=== PATIENT | male | born 1940 | race Caucasian/White ===

== ENCOUNTER 2017-12-04 11:00 | Inpatient (IN) | payer OTHER, MEDICARE ==
[~2017-12-04] VITALS: Ht 185.4 cm; Wt 94.2 kg
[2018-01-09] MEDS ORDERED: BOSW5TAB PO (12:48)
[2018-01-09] MEDS ORDERED: TAMS5CAP PO (12:48)
[2018-01-09] MEDS ORDERED: ASPI81CH6 CHEW (12:48)
[2018-03-01] MEDS ORDERED: MULTTAB67 PO (11:56)
[2018-03-08] MEDS ORDERED: ceFAZolin 2 GM PREMIX 50 ML IV SCH (06:30)
[2018-03-08] MEDS ORDERED: VANCOMYCIN 1 GM/200 ML INJ 200 ML IV SCH (06:30)
[2018-03-08] MEDS ORDERED: DEXAMETHASONE SOD PHOS 20 MG/5 ML VIAL IV PUSH ONE (06:30)
[2018-03-08] MEDS ORDERED: LACTATED RINGER'S 1000 ML IV PRN (06:30)
[2018-03-08] MEDS ORDERED: CHLORHEXIDINE GLUCONATE 2 % 1 PACK (2 CLOTHS) TOPICAL PRN (06:30)
[2018-03-08] MEDS ORDERED: EXPAREL PERI-ARTICULAR INJECTION (TOTAL VOL. 60 ML) P-ARTICULR SCH ×2 (06:30)
[2018-03-08] MEDS ORDERED: SODIUM CHLORID 0.9% 500 ML IV PRN (06:30)
[2018-03-08] MEDS ORDERED: POVIDONE IODINE 7.5% SCRUB 118 ML BOTTLE TOPICAL SCH (06:30)
[2018-03-08] MEDS ORDERED: METOPROLOL TARTRATE 25 MG TAB PO PRN (06:30)
[2018-03-08] MEDS ORDERED: CHLORHEXIDINE GLUCONATE 4% SOLN 120 ML BTL TOPICAL SCH (06:30)
[2018-03-08] MEDS ORDERED: POVIDONE IODINE 5% (ANTISEPSIS KIT) 4 APPLICATIONS EACH NARE PRN (06:30)
[2018-03-08] MEDS ORDERED: HYDR-3288 PO (06:58)
[2018-03-08] MEDS ORDERED: ASPI81CH6 CHEW (06:58)
[2018-03-08] MEDS ORDERED: ACETAMINOPHEN/HYDROcodone 325 MG/7.5 MG TAB PO PRN (07:00)
[2018-03-08] MEDS ORDERED: ONDANSETRON HCL 4 MG/2 ML VIAL IVP PRN (07:00)
[2018-03-08] MEDS ORDERED: MORPHINE SULFATE 4 MG/ML INJ IV PUSH PRN (07:00)
[2018-03-08] MEDS ORDERED: diphenhydrAMINE HCL 50 MG/ML VIAL IV PUSH PRN (07:00)
[2018-03-08] MEDS ORDERED: Post-op Orders (for Pharmacy) XX ONE (07:00)
[2018-03-08] MEDS ORDERED: GENTAMICIN SULFATE 80 MG/2 ML VIAL ONE (07:06)
[2018-03-08] MEDS ORDERED: TRANEXAMIC ACID IV SCH (08:30)
[2018-03-08] MEDS ORDERED: TRANEXAMIC PERI-ARTICULAR 3,000 MG/NS 100 ML P-ARTICULR SCH ×2 (08:30)
[2018-03-08] MEDS ORDERED: SODIUM CHLORIDE 0.9% IV SCH (08:30)
--- NOTE | 2018-03-08 10:27 | MP ---
cc: Gui Arthur MD DATE OF OPERATION: 03/08/2018 PREOPERATIVE DIAGNOSIS: Left hip osteoarthritis. POSTOPERATIVE DIAGNOSIS: Left hip osteoarthritis. PROCEDURE PERFORMED: Left total hip arthroplasty. SURGEON: Gui Arthur MD. CONCRETE PUMP OPERATOR HELPER: ASHLEY Rosales. ANESTHESIA: General. ESTIMATED BLOOD LOSS: 300 mL. COMPLICATIONS: None. IMPLANTS USED: DePuy Corail size 14 press-fit high offset femoral stem, size 56 solid Talbott Gription cup, size 36 mm neutral highly cross-linked polyethylene liner, size 36 mm cobalt chrome head, size +12 neck. JUSTIFICATION: This patient is a 77-year-old male with a history of severe osteoarthritis involving the left hip. He has severe disabling pain with standing, walking ambulation and weightbearing activities and even severe pain at rest. He has failed greater than 3 months of nonoperative conservative treatment to include medication therapy, injections, ambulatory assistive aids, home exercise program, activity modification, weight loss attempts. X-rays of the left hip revealed severe osteoarthritis with [id number] joint space narrowing, subchondral sclerosis, subchondral cyst, osteophyte formation with subluxation. The patient was counseled as to the risks, benefits, and alternatives to a total hip arthroplasty. The risks were discussed and include, but are not limited to anesthesia, bleeding, infection, damage to nerves and blood vessels, pain, stiffness, fracture, dislocation, leg length discrepancy, blood clots, pulmonary embolus and even . The patient's pain is severe. He favored the benefits over the risks. He did wish to proceed with surgery. PROCEDURE IN DETAIL: Written consent was obtained. The patient was identified by name, taken to the operating room and placed in supine on the operating room table. General anesthesia was administered, as well as 2 grams of IV Ancef and 1 gram of IV vancomycin. The left hip and left lower extremity were prepped and draped using Isopropyl alcohol, Hibiclens solution and ChloraPrep solution. After a time-out was performed, a longitudinal incision was made over the anterolateral aspect of the left hip. The fascial layer was incised. Dissection was carried over the tensor fascia juhi and beneath the rectus femoris to allow exposure of the anterior hip capsule. A capsulotomy incision was performed. An oscillating saw was used to perform a femoral neck cut. The osteoarthritic femoral head and neck component was removed. A 10 blade scalpel was used to excise the labrum. Sequential reaming began at size 49 and was carried through to a size 56. Subsequently, a solid Talbott Gription cup was then placed at approximately 45 degrees of abduction and 10 degrees anteversion. There was good purchase and fixation after insertion of the cup. A screw hole eliminator was placed, followed by the neutral liner. The liner was impacted in place and tested for stability. Attention was turned to the femur where a box cutting osteotome was used to gain entrance into the intramedullary canal of the femur. I did release the capsule off the undersurface of the greater trochanter to allow for elevation and lateralization of the femur. Sequential broaching began with a size 8 and was carried through to size 14. Trial head and neck combinations were evaluated and final components then implanted. With the current components, the leg could achieve external rotation to 70 degrees and get extension all the way down to the ground without evidence of anterior instability or impingement. Soft tissue tension felt appropriate. The surgical wound was thoroughly irrigated with sterile saline pulse lavage antibiotic impregnated solution. The fascial layer was closed with #1 Vicryl suture, subcutaneous layer with 2-0 Vicryl suture. Skin was closed with Dermabond. A sterile dressing was applied. The patient tolerated the procedure well. No intraoperative complications noted. Lalito Shafer, Physical Crossbow Maker Certified, was present during the entire procedure to include patient positioning and the procedure itself. The medical necessity of a physician assistance was indicated in this in this case due to the complexity of the procedure. He assisted with appropriate manipulation of the leg and also retraction of muscle, tendon, bone, and neurovascular structure. He assisted with preparation of bone and also implantation of the prosthetic replacement. Gui Arthur MD JWDevang/BHUPINDER , 10:07 AM , 10:26 AM
[2018-03-08] MEDS ORDERED: MIDAZOLAM HCL 2 MG/2 ML VIAL ONE (10:33)
[2018-03-08] MEDS ORDERED: *MEPERIDINE 25 MG INJ VIAL PERIprocedural Use ONLY ONE (11:00)
[2018-03-08] MEDS: SODIUM CHLOR 0.9% 1000 ML INJ 1,000 ML IV SCH ×2 (11:12→18:18)
--- NOTE | 2018-03-08 11:27 | RADRPT ---
EXAM DATE/TIME: 03/08/2018 11:40 [facility] COMPARISON: No previous studies available for comparison. INDICATIONS : Post-op left hip replacement. MEDICAL HISTORY : None. SURGICAL HISTORY : Left hip replacement. ENCOUNTER: Initial ACUITY: 1 day PAIN SCORE: Non-responsive. LOCATION: Left Hip FINDINGS: AP and crosstable lateral views of the left hip were obtained as well as an AP view of the pelvis. Th e patient status post left hip arthroplasty. The acetabular and femoral components are intact and in normal alignment. There is surrounding soft tissue swelling. CONCLUSION: Expected postoperative changes status post left hip arthroplasty. Fredrick Ludwig MD on March 08, 2018 at 11:23 Board Certified Radiologist. This report was verified electronically.
[2018-03-08] MEDS ORDERED: DO NOT ADM ANY ANTICOAGULANT DRUGS PRN (11:45)
[2018-03-08] MEDS ORDERED: LIDOCAINE HCL 1% PF 5 ML SYRINGE OTHER ONE (12:00)
[2018-03-08] MEDS ORDERED: DEXAMETHASONE SOD PHOS 4 MG/ML VIAL IV ONE (12:00)
[2018-03-08] MEDS ORDERED: NEOSTIGMINE 5 MG/5 ML SYRINGE IV PUSH ONE (12:00)
[2018-03-08] MEDS ORDERED: ROCURONIUM INJ 50 MG/5 ML SYRINGE IV PUSH ONE (12:00)
[2018-03-08] MEDS ORDERED: GLYCOPYRROLATE 1 MG/5 ML SYRINGE IV PUSH ONE (12:00)
[2018-03-08] MEDS ORDERED: PHENYLEPH/NS 1000 MCG/10 ML SYR IV ONE (12:00)
[2018-03-08] MEDS ORDERED: PROPOFOL 200 MG/20 ML AMP IV ONE (12:00)
[2018-03-08] MEDS ORDERED: ONDANSETRON HCL 4 MG/2 ML VIAL IV ONE (12:00)
--- NOTE | 2018-03-08 12:13 | RADRPT ---
EXAM DATE/TIME: 03/08/2018 08:52 [facility] COMPARISON: No previous studies available for comparison. INDICATIONS : Left anterior hip replacement. MEDICAL HISTORY : Arthritis. SURGICAL HISTORY : Tonsillectomy. ENCOUNTER: Initial ACUITY: 1 day PAIN SCORE: Non-responsive. LOCATION: Left anterior hip. FINDINGS: Fluoroscopic images during left hip arthroplasty. CONCLUSION: Left hip arthroplasty. Lewis Martino MD on March 08, 2018 at 12:11 Board Certified Radiologist. This report was verified electronically.
[2018-03-08] MEDS ORDERED: *morphine SULFATE 8 MG/ML PERIprocedure ONLY ONE (12:14)
[2018-03-08 14:00] VITALS: BP 119/59; PULSE 76; RESP 18; TEMP 97.1; O2SAT 96
[2018-03-08] MEDS: ACETAMINOPHEN/HYDROcodone 325 MG/7.5 MG TAB PO PRN ×2 (15:08→21:45)
[2018-03-08 16:00] VITALS: BP 105/53; PULSE 67; RESP 18; TEMP 97.4; O2SAT 97
--- NOTE | 2018-03-08 17:26 | PD.CONS ---
HPI Service [facility] Consult Requested By Reason for Consult Medical management Primary Care Physician Non-Staff Diagnoses: (1) BPH (benign prostatic hyperplasia) (2) Primary localized osteoarthrosis, pelvic region and thigh History of Present Illness 77-year-old male with a medical history significant for osteoarthritis, BPH, anxiety admitted for elective left hip arthroplasty. Patient is seen postoperatively. Medical history reviewed at length. Failed conservative treatment for osteoarthritis. He does have a history of urinary retention secondary to BPH. He states he has not been taking any medication including Flomax for the past 2 weeks in anticipation for surgery. Has not voided yet since surgery. He denies suprapubic pain at this time. Review of Systems Constitutional: DENIES: Weight loss Musculoskeletal: COMPLAINS OF: Joint pain Except as stated in HPI: all other systems reviewed are Neg Past Family Social History Allergies: Coded Allergies: No Known Allergies (Verified Adverse Reaction, Unknown, 03/08/18) Past Medical History osteoarthritis, BPH, anxiety Past Surgical History Appendectomy Tonsillectomy Hemorrhoidectomy Hernia repair Reported Medications Reported Meds & Active Scripts Active Aspirin Low Dose (Aspirin) 81 Mg Chew 81 Mg CHEW BID 30 Days [place] (Hydrocodone-Acetaminophen) 7.5-325 mg Tab 1-2 Tab PO Q6H PRN Reported Multiple Vitamin 1 Tab 1 Tab PO DAILY Osteo Bi-Flex Caplet (Glucosamine/D3/Boswellia Mayra) 1,500 Mg-400 Unit-100 Mg Tablet 1 Cap PO BID Flomax (Tamsulosin HCl) 0.4 Mg Cap 0.4 Mg PO HS Aspirin Low Dose (Aspirin) 81 Mg Chew 81 Mg CHEW DAILY Family History Reviewed and found to be noncontributory. Social History Does not use tobacco. Admits to occasional alcohol use. Physical Exam Vital Signs Vital Signs Date Time Temp Pulse Resp B/P (MAP) Pulse Ox O2 Delivery O2 Flow Rate FiO2 03/08/18 16:09 18 03/08/18 14:00 97.1 76 18 119/59 (79) 96 03/08/18 14:00 98.4 82 16 107/57 (74) 98 Nasal Cannula 2 03/08/18 13:00 85 15 102/57 (72) 99 Nasal Cannula 2 03/08/18 12:00 80 17 108/60 (76) 100 Nasal Cannula 2 03/08/18 11:30 83 13 126/60 (82) 99 Nasal Cannula 2 03/08/18 11:15 82 14 126/61 (82) 96 Nasal Cannula 2 03/08/18 11:00 79 18 112/58 (76) 96 Nasal Cannula 2 03/08/18 10:45 80 15 118/58 (78) 96 Nasal Cannula 2 03/08/18 10:30 80 20 119/59 (79) 97 Nasal Cannula 4 03/08/18 10:28 98.0 83 20 132/65 (87) 95 Nasal Cannula 4 03/08/18 06:45 98.9 70 20 131/66 (87) 95 Physical Exam GENERAL: This is a well-nourished, well-developed patient, in no apparent distress. SKIN: No rashes, ecchymoses or lesions. Cool and dry. HEAD: Atraumatic. Normocephalic. No temporal or scalp tenderness. EYES: Pupils equal round and reactive. Extraocular motions intact. No scleral icterus. No injection or drainage. ENT: Nose without bleeding, purulent drainage or septal hematoma. Throat without erythema, tonsillar hypertrophy or exudate. Uvula midline. Airway patent. NECK: Trachea midline. No JVD or lymphadenopathy. Supple, nontender, no meningeal signs. CARDIOVASCULAR: Regular rate and rhythm without murmurs, gallops, or rubs. RESPIRATORY: Clear to auscultation. Breath sounds equal bilaterally. No wheezes , rales, or rhonchi. GASTROINTESTINAL: Abdomen soft, non-tender, nondistended. No hepato-splenomegaly , or palpable masses. No guarding. MUSCULOSKELETAL: Left hip postop dressing intact. Neurovascularly intact distally. NEUROLOGICAL: Awake and alert. Cranial nerves II through XII intact. Motor and sensory grossly within normal limits. Five out of 5 muscle strength in all muscle groups. Normal speech. Imaging Last Impressions Hip and Pelvis X-Ray 03/08/18 0656 Signed Impressions: Service Date/Time: Thursday, March 08, 2018 11:40 - CONCLUSION: Expected postoperative changes status post left hip arthroplasty. Fredrick Ludwig MD Hip X-Ray 03/08/18 0000 Signed Impressions: Service Date/Time: Thursday, March 08, 2018 08:52 - CONCLUSION: Left hip arthroplasty. Lweis Martino MD Assessment and Plan Problem List: (1) History of arthroplasty of left hip ICD Code: Z96.642 - Presence of left artificial hip joint (2) Primary localized osteoarthrosis, pelvic region and thigh ICD Code: M16.10 - Unilateral primary osteoarthritis, unspecified hip (3) BPH (benign prostatic hyperplasia) ICD Code: N40.0 - Benign prostatic hyperplasia without lower urinary tract symptoms Assessment and Plan 77-year-old male with: Osteoarthritis of the left hip status post left hip arthroplasty: - Routine postop care per orthopedics. - Pain control -Early PT BPH/history of urinary retention: Has not been taking regular Flomax for the past 2 weeks - We will give a dose of Flomax now. Follow voiding pattern. We will continue to follow. Discussed Condition With Patient and significant other at bedside. Rafael Peter MD Mar 08, 2018 17:26
[2018-03-08] MEDS: TAMSULOSIN HCL 0.4 MG CAP PO SCH (18:12)
[2018-03-08] MEDS ORDERED: ZOLPIDEM TARTRATE 5 MG TAB PO PRN (21:00)
[2018-03-08] MEDS ORDERED: TAMSULOSIN HCL 0.4 MG CAP PO SCH (21:00)
[2018-03-08 22:04] VITALS: BP 107/53; PULSE 68; RESP 17; TEMP 98.3; O2SAT 96
[2018-03-09 02:40] VITALS: BP 106/60; PULSE 72; RESP 16; TEMP 97.6; O2SAT 94
[2018-03-09] MEDS: SODIUM CHLOR 0.9% 1000 ML INJ 1,000 ML IV SCH (04:00)
[2018-03-09 05:12] LABS: HEMATOCRIT 24.4 % (39.0-51.0); HEMOGLOBIN 8.6 GM/DL (13.0-17.0); MEAN CELL VOLUME 105.7 FL (80.0-100.0); MEAN CORPUSCULAR HEMOGLOBIN 37.4 PG (27.0-34.0); MEAN CORPUSCULAR HGB CONC 35.4 % (32.0-36.0); MEAN PLATELET VOLUME 8.5 FL (7.0-11.0); PLATELET COUNT 244 TH/MM3 (150-450); RED BLOOD COUNT 2.31 MIL/MM3 (4.50-5.90); RED CELL DISTRIBUTION WIDTH 14.3 % (11.6-17.2); WHITE BLOOD COUNT 13.7 TH/MM3 (4.0-11.0)
[2018-03-09 05:41] VITALS: BP 105/51; PULSE 72; RESP 16; TEMP 97.5; O2SAT 95
--- NOTE | 2018-03-09 07:50 | PD.ORT.PN ---
Subjective Post Op Day #: 1 Subjective Remarks doing well. pain controlled. Objective Vitals Vital Signs Date Time Temp Pulse Resp B/P (MAP) Pulse Ox O2 Delivery O2 Flow Rate FiO2 03/09/18 05:41 97.5 72 16 105/51 (69) 95 03/09/18 02:40 97.6 72 16 106/60 (75) 94 03/08/18 22:04 98.3 68 17 107/53 (71) 96 03/08/18 16:09 18 03/08/18 16:00 97.4 67 18 105/53 (70) 97 03/08/18 14:00 97.1 76 18 119/59 (79) 96 03/08/18 14:00 98.4 82 16 107/57 (74) 98 Nasal Cannula 2 03/08/18 13:00 85 15 102/57 (72) 99 Nasal Cannula 2 03/08/18 12:00 80 17 108/60 (76) 100 Nasal Cannula 2 03/08/18 11:30 83 13 126/60 (82) 99 Nasal Cannula 2 03/08/18 11:15 82 14 126/61 (82) 96 Nasal Cannula 2 03/08/18 11:00 79 18 112/58 (76) 96 Nasal Cannula 2 03/08/18 10:45 80 15 118/58 (78) 96 Nasal Cannula 2 03/08/18 10:30 80 20 119/59 (79) 97 Nasal Cannula 4 03/08/18 10:28 98.0 83 20 132/65 (87) 95 Nasal Cannula 4 I/O 03/08/18 03/08/18 03/08/18 03/09/18 03/09/18 03/09/18 07:00 15:00 23:00 07:00 15:00 23:00 Intake Total 1478 ml Output Total 450 ml Balance 1028 ml Intake Oral 220 ml IV Total 1258 ml Output Urine Total 350 ml Estimated Blood Loss 100 ml Result Diagram: 03/09/18 0450 Objective Remarks in bed, nad dressing c/d/i thigh soft neg homans nvi Assessment & Plan Ortho Post Op Day #: 1 Problem List: Assessment and Plan s/p L DEAN wbat ok to maintain dressing unless saturated lovenox, d/c on asa 81 d/c planning home with [facility] and pt - cleared today if does well in PT f/up dr. landaverde 2 weeks Gui Shafer Mar 09, 2018 07:50
--- NOTE | 2018-03-09 07:51 | HHI.DCPOC ---
Discharge Care Plan Diagnosis: (1) Primary localized osteoarthrosis, pelvic region and thigh Your Health Problems Are: Difficulty with ADL Goals to Promote Your Health * To prevent worsening of your condition and complications * To maintain your health at the optimal level Directions to Meet Your Goals Take your medications as prescribed Follow your dietary instruction Follow activity as directed Keep your appointments as scheduled Take your immunizations and boosters as scheduled If your symptoms worsen call your PCP, if no PCP go to Urgent Care Center or Emergency Room Smoking is Dangerous to Your Health. Avoid second hand smoke Call the 24-hour hour crisis hotline for domestic abuse at Gui Shafer Mar 09, 2018 07:51
--- NOTE | 2018-03-09 07:52 | HHI.FF ---
Face to Face Verification Diagnosis: (1) Primary localized osteoarthrosis, pelvic region and thigh Physical Therapy Gait training, Safety evaluation, Transfer training, bed to chair Hip: Total hip, Protocol: Left, Progress to weight bearing Left LE Weight Bearing: WB as tolerated Nursing RN: 3 days/week x 2 weeks Nursing: Dressing changes Dressing Changes: Daily dressing change I have seen patient Adan Milton on 03/09/18. My clinical findings support the need for the requested home health care services because: Limited ability to care for self High risk of falls I certify that my clinical findings support that this patient is homebound because: Post-op weakness Unsteady gait/balance Gui Shafer Mar 09, 2018 07:51
[2018-03-09 08:00] VITALS: BP 119/57; PULSE 73; RESP 18; TEMP 97.9; O2SAT 96
[2018-03-09] MEDS: TAMSULOSIN HCL 0.4 MG CAP PO SCH (09:15)
[2018-03-09] MEDS: ACETAMINOPHEN/HYDROcodone 325 MG/7.5 MG TAB PO PRN ×2 (09:22→12:46)
[2018-03-09] MEDS ORDERED: ENOXAPARIN SODIUM 40 MG/0.4 ML SYRINGE SQ SCH (09:30)
[2018-03-09] MEDS ORDERED: MULTIVITAMINS/MINERALS THERAPEUTIC TAB PO SCH (21:00)
[2018-03-09] MEDS ORDERED: DOCUSATE SODIUM 100 MG CAP PO SCH (21:00)
== END 2018-03-09 14:16 | disposition home health service (06) | DRG 470 ==
LOC: HSDI 03-08 05:41 → N06B 03-08 14:08
PROVIDERS: ADMIT Orthopaedic Surgery Sports Medicine; ATTEND Orthopaedic Surgery Sports Medicine
PROC: 0SRB02A Replacement of Left Hip Joint with Metal on Polyethylene Synthetic Substitute, Uncemented, Open Approach (ICD-10-PCS; principal; 2018-03-08 08:24)
DX: M16.12 Unilateral primary osteoarthritis, left hip (principal); F41.9 Anxiety disorder, unspecified; N40.1 Benign prostatic hyperplasia with lower urinary tract symptoms; R33.8 Other retention of urine; Z87.891 Personal history of nicotine dependence
CPT/HCPCS: 73502; 76000; 85027; 86850; 86900; 86901; 94150; C1776; J0690; J1100; J1580; J1650; J2175; J2250; J2270; J2370; J2405; J2710; J3010; J3370; J7030; J7120

== ENCOUNTER 2018-01-09 10:45 | Emergency (ER) | payer OTHER ==
[~2018-01-09] VITALS: Ht 185.4 cm; Wt 96.8 kg
[~2018-01-09 10:45] MED LIST: ALPR0.25 PO; ATOR20TA42 PO; DICY20TA10 PO; LEVA500T PO; LORTA5 PO; METR-1 PO; PROS5TAB2 PO; ST JTAB PO
[2018-01-09 11:09] VITALS: BP 129/58; PULSE 82; RESP 16; TEMP 97.9; O2SAT 96
[2018-01-09] MEDS ORDERED: TAMS5CAP PO (12:48)
[2018-01-09] MEDS ORDERED: BOSW5TAB PO (12:48)
[2018-01-09] MEDS ORDERED: ASPI81CH6 CHEW (12:48)
--- NOTE | 2018-01-09 13:04 | PD ---
HPI Chief Complaint: ENT Complaint Time Seen by Provider: 12:52 Travel History International Travel<30 days: No Contact w/Intl Traveler<30days: No Traveled to known affect area: No History of Present Illness HPI Is is a 77-year-old male here with left ear pain 3 days. Denies fever or chills. No drainage from the ear. Symptom severity is moderate. No aggravating or alleviating factors. PFSH Past Medical History Blood Disorders: No Cancer: No Cardiovascular Problems: Yes (R BBB) High Cholesterol: Yes Chest Pain: No Diabetes: No Endocrine: No Gastrointestinal Disorders: Yes (IBS) Glaucoma: No Genitourinary: Yes (BPH) Hepatitis: No Hiatal Hernia: No Hypertension: No Immune Disorder: No Musculoskeletal: No Neurologic: No Psychiatric: No Reproductive: No Respiratory: No Integumentary: No Thyroid Disease: No Past Surgical History Abdominal Surgery: Yes (INGUINAL HERNIORRHAPHY) Thoracic Surgery: No Tonsillectomy: Yes Social History Alcohol Use: Yes (COUPLE DRINKS/WEEK) Tobacco Use: No Substance Use: No Allergies-Medications (Allergen,Severity, Reaction): Coded Allergies: No Known Allergies (Unverified Adverse Reaction, Unknown, 01/09/18) Reported Meds & Prescriptions Reported Meds & Active Scripts Active Reported Osteo Bi-Flex Caplet (Glucosamine/D3/Boswellia Mayra) 1,500 Mg-400 Unit-100 Mg Tablet 1 Cap PO BID Flomax (Tamsulosin HCl) 0.4 Mg Cap 0.4 Mg PO HS Aspirin Low Dose (Aspirin) 81 Mg Chew 81 Mg CHEW DAILY Review of Systems Except as stated in HPI: all other systems reviewed are Neg General / Constitutional: No: Fever HENT: Positive: Earache Physical Exam Narrative GENERAL: Alert and well-appearing 77-year-old male SKIN: Warm and dry. HEAD: Normocephalic. EYES: No injection or drainage. Ear/nose/throat: Left TM erythema, bulging, loss of landmarks. No canal swelling or drainage. No mastoid tenderness. NECK: Supple CARDIOVASCULAR: Regular rate and rhythm RESPIRATORY: Breath sounds equal bilaterally. No accessory muscle use. Data Data Last Documented VS Vital Signs Date Time Temp Pulse Resp B/P (MAP) Pulse Ox O2 Delivery O2 Flow Rate FiO2 01/09/18 11:09 97.9 82 16 129/58 (81) 96 MDM Medical Decision Making Medical Screen Exam Complete: Yes Emergency Medical Condition: Yes Differential Diagnosis Otitis media, otitis externa, mastoiditis, URI Narrative Course 77-year-old male here with otitis media of the left ear. Mastoid tenderness. He'll be treated with amoxicillin. Diagnosis Primary Impression: Otitis media Qualified Codes: H66.90 - Otitis media, unspecified, unspecified ear Referrals: Primary Care Physician Additional Instructions: Tylenol or ibuprofen as needed for pain. Antibiotics as directed. Follow-up the primary doctor. Scripts Amoxicillin (Amoxicillin) 500 Mg Cap 500 MG PO TID for Infection for 10 Days, CAP 0 Refills Prov: Mary Corbin 01/09/18 Disposition: 01 DISCHARGE HOME Condition: Stable Mary Corbin Jan 09, 2018 13:04
[2018-01-09] MEDS ORDERED: AMOX500C PO (13:07)
== END 2018-01-09 13:12 | disposition home or self-care (01) ==
LOC: PHED 10:45 → PHEFT 13:12
DX: H66.92 Otitis media, unspecified, left ear (principal); E78.00 Pure hypercholesterolemia, unspecified; Z79.82 Long term (current) use of aspirin; Z79.899 Other long term (current) drug therapy
CPT/HCPCS: 99283

== ENCOUNTER → 2018-03-01 | Outpatient (CLI) | payer MEDICARE, OTHER ==
[~2018-03-01] MED LIST changes: -ALPR0.25 PO; +AMOX500C PO; +ASPI81CH6 CHEW; -ATOR20TA42 PO; +BOSW5TAB PO; -DICY20TA10 PO; +HYDR-3288 PO; -LEVA500T PO; -LORTA5 PO; -METR-1 PO; +MULTTAB67 PO; -PROS5TAB2 PO; -ST JTAB PO; +TAMS5CAP PO
== END ==
LOC: CPRE 11:36
PROVIDERS: ATTEND Orthopaedic Surgery Sports Medicine
DX: M16.12 Unilateral primary osteoarthritis, left hip (principal)